=== PATIENT | female | born 1980 | race Caucasian/White ===

== ENCOUNTER → 2022-06-15 12:35 | Outpatient (CLI) | payer OTHER, SELFPAY ==
--- NOTE | ~2022-06-15 | US_ITS ---
Pelvic ultrasound. Clinical History: IUD placement, pelvic pain Technique: Realtime transabdominal and transvaginal scanning of the pelvis was performed. Color flow Doppler and Doppler spectral analysis were performed. Findings: The uterus is anteverted. The endometrial stripe has a thickness of 4 mm. IUD is in satisf actory position. No focal mass is identified. The right ovary measures 3.5 x 3.0 x 3.3 cm. Simple right ovarian cyst measures 2.6 cm in diameter. The left ovary measures 2.2 x 1.7 x 1.7 cm. No significant left ovarian or adnexal mass is seen. Vascular flow present in both ovaries on Doppler spectral analysis. There is no evidence of free fluid in the cul de sac. Impression: IUD in satisfactory position. 2.6 cm simple right ovarian cyst. Reviewed, dictated and finalized at [facility]. [employer] Impression: IUD in satisfactory position. 2.6 cm simple right ovarian cyst.
== END ==
PROVIDERS: Visit Provider Obstetrics & Gynecology Gynecology
DX: T83.32XA Displacement of intrauterine contraceptive device, initial encounter (principal); N83.201 Unspecified ovarian cyst, right side
CPT/HCPCS: 76830